=== PATIENT | female | born 1990 | race Caucasian/White ===

== ENCOUNTER 2016-07-19 17:56 | Emergency (ER) | payer BC ==
[~2016-07-19] VITALS: Ht 160 cm; Wt 46.7 kg
[~2016-07-19 17:56] MED LIST: IBUPROFEN 600600 M1 PO; PEPCID20 MG PO; VICODIN 5-5001 EACH PO; ZOFRAN ODT4 MG PO
[2016-07-19 18:31] LABS: HEMATOCRIT 39.2 % (37.0-47.0); HEMOGLOBIN 13.1 gm/dL (12.0-15.0); MCH 27.8 pg (26.0-34.0); MCHC 33.5 g/dL (28.0-37.0); PLATELET COUNT 279 thou/uL (150-400); RBC 4.72 mil/uL (4.20-5.00); RDW 12.1 % (10.5-14.5); WBC 19.8 thou/uL (4.0-11.0)
[2016-07-19 18:34] LABS: MANUAL DIFF YES
[2016-07-19 18:41] LABS: CALCIUM 8.7 mg/dL (8.5-10.1); CREATININE 0.7 mg/dL (0.6-1.0); POTASSIUM 3.1 mmol/L (3.5-5.1)
[2016-07-19 18:45] LABS: ALBUMIN 4.3 g/dL (3.4-5.0); DIRECT BILIRUBIN 0.1 mg/dL (<0.1-0.3); TOTAL BILIRUBIN 0.6 mg/dL (<0.1-1.0); TOTAL PROTEIN 7.6 g/dL (6.4-8.2)
[2016-07-19 18:55] LABS: ABSOLUTE NEUTROPHILS 17.6 thou/uL (1.4-8.2); ANISOCYTOSIS 1+; TOTAL CELL COUNT 100
[2016-07-19] MEDS ORDERED: ZOFRAN ODT4 MG PO (20:41)
[2016-07-19 20:53] VITALS: BP 104/56
== END 2016-07-19 20:53 | disposition home or self-care (01) ==
LOC: ER 17:56
PROVIDERS: Emergency Medicine
DX: R11.2 Nausea with vomiting, unspecified (principal); R10.84 Generalized abdominal pain; F12.10 Cannabis abuse, uncomplicated